=== PATIENT | male | born 1970 | race Caucasian/White ===

== ENCOUNTER → 2018-09-26 09:32 | Outpatient (CLI) | payer OTHER, SELFPAY ==
[2018-09-26 10:56] LABS: Alanine Aminotransferase 33 IU/L (21-72); Albumin 4.3 g/dL (3.5-5.0); Albumin Globulin Ratio 1.6 (1.0-2.8); Alkaline Phosphatase 43 U/L (38-126); Aspartate Aminotransferase 22 IU/L (17-59); BUN Creatinine Ratio 25.6 (6-22); Bilirubin Total 0.6 mg/dL (0.2-1.3); Blood Urea Nitrogen 23 mg/dL (9-20); Calcium 9.8 mg/dL (8.4-10.2); Carbon Dioxide 28 mmol/L (22-32); Chloride 102 mmol/L (98-107); Estimated Glomerular Filt Rate > 60.0 mL/min (>60); Globulin 2.7 g/dL (1.7-4.1); Glucose 85 mg/dL (70-100); HEMOLYSIS < 15 (0-50); Potassium 4.4 mmol/L (3.4-5.1); Sodium 138 mmol/L (137-145)
== END ==
PROVIDERS: Family Provider Internal Medicine; PCP Internal Medicine; Visit Provider Internal Medicine
DX: I10 Essential (primary) hypertension (principal)
CPT/HCPCS: 36415; 80053

== ENCOUNTER → 2019-09-21 07:16 | Outpatient (CLI) | payer OTHER, SELFPAY ==
[2019-09-21 08:08] LABS: Add Manual Diff / Slide Review NO; Basophils Absolute Auto 0 /uL (0-100); Basophils Percent Auto 0.3 % (0-2); Eosinophils Absolute Auto 100 /uL (0-450); Eosinophils Percent Auto 1.3 % (2-4); Hematocrit 45.4 % (41-53); Hemoglobin 15.2 g/dL (13.5-17.5); Lymphocytes Absolute Auto 3100 /uL (1100-4500); Lymphocytes Percent Auto 49.4 % (25-40); Mean Corpuscular HGB Conc 33.5 % (30-36); Mean Corpuscular Hemoglobin 29.2 PG (26-34); Mean Corpuscular Volume 87.3 fL (80-100); Monocytes Absolute Auto 500 /uL (0-900); Monocytes Percent Auto 7.3 % (3-14); Neutrophils Absolute Auto 2700 /uL (1500-7000); Neutrophils Percent Auto 41.7 % (50-75); Platelet Count 220 X10^3/uL (150-400); Red Cell Distribution Width 13.2 % (11.6-14.8); White Blood Cell Count 6.4 X10^3/uL (4.5-11.0)
[2019-09-21 08:42] LABS: Alanine Aminotransferase 29 IU/L (<50); Albumin 4.6 g/dL (3.5-5.0); Albumin Globulin Ratio 1.5 (1.0-2.8); Alkaline Phosphatase 40 U/L (38-126); Aspartate Aminotransferase 32 IU/L (17-59); BUN Creatinine Ratio 24.7 (6-22); Bilirubin Total 0.6 mg/dL (0.2-1.3); Blood Urea Nitrogen 23 mg/dL (9-20); Calcium 9.8 mg/dL (8.4-10.2); Carbon Dioxide 30 mmol/L (22-32); Chloride 101 mmol/L (98-107); Cholesterol 192 mg/dL (140-199); Estimated Glomerular Filt Rate > 60.0 mL/min (>60); Glucose 106 mg/dL (70-100); HDL Cholesterol 58 mg/dL (40-60); HEMOLYSIS < 15 (0-50); LDL Cholesterol Calculated 121 mg/dL (<100); Potassium 4.5 mmol/L (3.4-5.1); Sodium 138 mmol/L (137-145); Total Protein 7.6 g/dL (6.3-8.2); Triglycerides 66 mg/dL (35-150)
[2019-09-21 08:44] LABS: C-Reactive Protein Quant < 0.5 mg/dL (<1.0)
[2019-09-21 08:52] LABS: Erythrocyte Sedimentation Rate 1 MM/HR (0-15)
== END ==
PROVIDERS: Family Provider Internal Medicine; PCP Internal Medicine; Referring Provider Internal Medicine; Visit Provider Internal Medicine
DX: I10 Essential (primary) hypertension (principal); M25.50 Pain in unspecified joint
CPT/HCPCS: 36415; 80053; 80061; 85025; 85651; 86140

== ENCOUNTER → 2020-06-12 09:29 | Outpatient (CLI) | payer OTHER, MEDICAID, SELFPAY ==
[2020-06-12 11:21] LABS: COVID19 -Nasal RAPID Negative (Negative)
== END ==
PROVIDERS: Family Provider Internal Medicine; PCP Internal Medicine; Visit Provider Surgery
DX: Z01.812 Encounter for preprocedural laboratory examination (principal); Z20.822 Contact with and (suspected) exposure to COVID-19
CPT/HCPCS: 87635; C9803

== ENCOUNTER 2020-06-13 11:39 | Day surgery (SDC) | payer OTHER, MEDICAID, SELFPAY ==
[2020-06-13] MEDS: LACTATED RINGERS 1,000 ML 200 ML IV (11:58)
[2020-06-13 12:09] VITALS: BP 125/81; PULSE 89; RESP 13; TEMP 36.7; O2SAT 100; BMI 24.7
--- NOTE | 2020-06-13 13:07 | P.HP_ITS ---
History of Present Illness History of Present Illness Date Patient Seen: 06/13/20 Time Patient Seen: 13:07 Chief complaint: SDC Narrative: The patient presents for colorectal sreening. They have never had any previous examination for such. No personal or family history of colon cancer. On further history denies any recent gastrointestinal symptoms. No nausea, vomiting, abdominal pain, loss of appetite, unexplained weight loss, change in bowel habits, diarrhea, constipation, melena, hematochezia, or bright red blood per rectum. Patient History Medical History Essential hypertension Osteoarthritis of hands, bilateral Osteoarthritis of lumbar spine Surgical History Status post appendectomy Family & Social History Social History: household members children,none Tobacco & Substance use: Smoking Status Never smoker alcohol intake former Substance Use Type opiates,painkillers Meds Home Medications and Allergies Home Medications Medication Instructions Recorded Confirmed Type gabapentin 300 mg capsule 300 mg PO BID #180 tab 10/04/18 06/13/20 Rx lisinopril 40 mg tablet 40 mg PO QDAY #90 tab 10/04/19 06/13/20 Rx hydrochlorothiazide 25 mg tablet 25 mg PO DAILY #120 tab 10/12/19 06/13/20 Rx tramadol 50 mg tablet 50 mg PO Q8HP PRN #90 tab 06/10/20 06/13/20 Rx ascorbic acid (vitamin C) [Vitamin 2,000 mg PO DAILY 06/13/20 06/13/20 History C] melatonin 2 mg PO BEDTIME PRN 06/13/20 06/13/20 History turmeric 3,000 mg PO DAILY PRN 06/13/20 06/13/20 History Allergies Allergy/AdvReac Type Severity Reaction Status Date / Time No Known Drug Allergies Allergy Verified 06/13/20 11:57 Review of Systems Review of Systems Narrative: A 10 point review of systems is negative except as noted in the HPI Exam Vital Signs (past 8 hours): - 06/13/20 12:09 Temperature 98.0 F Pulse Rate 89 Respiratory Rate 13 Blood Pressure 125/81 Pulse Oximetry 100 Oxygen Delivery Method Room Air Narrative Exam Narrative: General-no acute distress, well nourished adult male HEENT-moist mucous membranes, no scleral icterus Neck-supple, no lymphadenopathy Chest- non labored respirations, clear to auscultation bilaterally Cardiac-regular rate no peripheral edema Abdomen-soft, nontender, non distended Extremities-warm, well perfused Neurological-alert and oriented, no focal deficits Assessment & Plan Assessment & Plan narrative: The patient requires colorectal screening and colonoscopy is recommended. Technical details were discussed. Risks, benefits, alternatives explained. Risks including but not limited to myocardial infarction, aspiration, bleeding, pain, missed lesion, incomplete examination, need for further radiographic studies, colonic perforation, and need for major abdominal surgery were discussed. All questions were answered to their sati sfaction, and they are in agreement with this plan.
--- NOTE | 2020-06-13 13:38 | PM.OP.ENDO ---
Operative Date/Time/Diagnoses Date of procedure: 06/13/20 Time of procedure: 13:38 Pre-op diagnosis: Screening colonoscopy Post-op diagnosis: same Procedure & Clinicians Study performed: Colonoscopy Same procedure as scheduled: Yes Indications: 50-year-old man no prior colonoscopy presents for routine screening Surgeon: Raymundo Amaro Procedure Notes Procedure in detail: Medications: Conscious sedation using 6 mg IV midazolam and 200mcg IV of fentanyl The history and physical was performed/updated and the patient is ASA class is 2. The procedure was discussed in detail with the patient. Potential risks complications including infection, bleeding, missed diagnosis, perforation, need for surgery, and were explained. Their questions were answered and informed consent was obtained. Patient was brought to the procedure room and placed standard monitoring equipment. The patient's vital signs were monitored continuously throughout the entire procedure. Prior to starting time-out was performed. The patient was placed in the left lateral recumbent position. Procedural sedation was administered. Examination began with a thorough inspection of the perianal area there was no evidence of fissures, fistulae, external hemorrhoids or cutaneous malignancy. The colonoscopy scope was then placed into the anal canal and was advanced to the cecum, which was identified by the ileocecal valve, the appendiceal orifice and the confluence of the taenia. The scope was then slowly withdrawn examining colon thoroughly in all directions, irrigating it of any residual stool. No masses or polyps The patient tolerated the procedure well. They will be discharged once criteria are met. The prep was of good/excellent quality. The withdrawl time was 8 minutes. The sedation time was 25 minutes. Specimen(s): none sent Complications: none Impression: Normal colonoscopy Post-procedure Recommendations: Colonscopy in 10 years Disposition: same day surgery
[2020-06-13] MEDS: MIDAZOLAM 5 MG/5 ML VIAL IV (13:40)
[2020-06-13] MEDS: fentaNYL 250 MCG/5 ML INJ IV (13:40)
[2020-06-13 13:42] VITALS: BP 133/73; PULSE 90; RESP 14; TEMP 36.6; O2SAT 95
[2020-06-13 13:48] VITALS: BP 108/73; PULSE 88; RESP 16; O2SAT 95
--- NOTE | 2020-06-13 13:51 | SUR.PHASEI ---
Pt still with semi hard abdomen, turned on side and knees brought up to chest to help expell gas
[2020-06-13 13:52] VITALS: BP 109/75; PULSE 81; RESP 16; TEMP 36.6; O2SAT 96
[2020-06-13 13:57] VITALS: BP 111/77; PULSE 80; RESP 16; TEMP 36.7; O2SAT 96
--- NOTE | 2020-06-13 14:05 | SUR.PHASEI ---
Assisted pt to br, to expell gas, report to penelope rankin.
[2020-06-13 14:23] VITALS: BP 106/68; PULSE 64; RESP 13; TEMP 36.2; O2SAT 98
== END 2020-06-13 14:35 | disposition home or self-care (01) ==
PROVIDERS: Family Provider Internal Medicine; PCP Internal Medicine; Referring Provider Surgery; Visit Provider Surgery
PROC: 0DJD8ZZ Inspection of Lower Intestinal Tract, Via Natural or Artificial Opening Endoscopic (ICD-10-PCS; CPT 45378; principal; 2020-06-13 13:00)
DX: Z12.11 Encounter for screening for malignant neoplasm of colon (principal); I10 Essential (primary) hypertension
CPT/HCPCS: G0121; 99152; 99153; J2250; J3010

== ENCOUNTER → 2020-10-01 16:29 | Outpatient (CLI) | payer SELFPAY ==
[2020-10-01 17:11] LABS: Urine Drug scr, USCG NIDA See Separate Report
== END ==
PROVIDERS: Family Provider Internal Medicine; PCP Internal Medicine
DX: Z02.1 Encounter for pre-employment examination (principal)
CPT/HCPCS: 81099